=== PATIENT | female | born 1975 | race Caucasian/White ===

== ENCOUNTER 2018-09-09 06:48 | Day surgery (SDC) | payer OTHER, SELFPAY ==
[2018-09-07 15:16] VITALS: BMI 32.9
[2018-09-09] VITALS (11 sets, daily range): BP systolic 112–166; BP diastolic 66–109; PULSE 66–81; RESP 12–19; TEMP 36.2–36.6; O2SAT 92–100; BMI 32.9
--- NOTE | 2018-09-09 | PATH_ITS ---
[facility] Accession Number: [id number] . 01 Material submitted: . R FALLOPIAN TUBE; PORTION L FALLOPIAN TUBE . 02 Diagnosis: Right Fallopian Tube and Portion of Left Fallopian Tube, Right Salpingectomy and Left Partial Salpingectomy: Fimbriated fallopian tube x1 and segment of fallopian tube x1 with no significant histomorphologic abnormality. MRV/09/12/2018 . 02 Electronically signed: . Judy Fenton MD, Pathologist NPI- [id number] . 01 Gross description: . Received in formalin, labeled right fallopian tube + portion left fallopian tube, is a fimbriated fallopian tube (length-4.8 cm, diameter-0.5 cm) and a non-fimbriated segment of fallopian tube (length-2.2 cm, diameter-0.9 cm). The serosa is lópez-huffman, smooth, and shiny. The lumens are lópez and unremarkable. Section code: (A1) fimbriated fallopian tube, medical detail representative serial sections; (A2) fimbria, bivalved, entirely submitted; (A3) non-fimbriated segment, medical detail representative serial sections. ([id number]) /FRR . 02 Pathologist provided ICD-10: Z30.2 . 02 CPT . [id number] Performed at: 01 [facility] [address] [facility], [place], [place] [id number] MD Kobi Pena MD Phone: [phone] Performed at: 02 [facility] [address] [place], [place] [id number] MD Lakshmi Pollock MD Phone: [phone]
--- NOTE | 2018-09-09 07:46 | PM.PREOP ---
Pre-operative Note Interval Note History & Physical reviewed/Exam performed by Physician: Yes Changes to H&P: No
--- NOTE | 2018-09-09 07:46 | PM.HP.1 ---
History of Present Illness Date Patient Seen: 09/09/18 Time Patient Seen: 07:47 Chief complaint: [id number] Narrative: Patient is a 42-year-old with pelvic pain She has Essure in place. Patient History Medical History Ectopic (Resolved) History of urinary reflux (Resolved) Surgical History History of gynecologic surgery (Resolved) History of third molar tooth extraction (Resolved) History of tonsillectomy (Resolved 1997) Status post laparoscopy (Resolved ~1990) Status post urinary system surgery (Resolved ~1979) Social History household members: spouse Smoking Status: Former smoker Family & Social History Social History: household members spouse Tobacco & Substance use: Smoking Status Former smoker Meds Home Medications Medication Instructions Recorded Confirmed Type ibuprofen 600 mg tablet 600 mg PO QID PRN 04/12/18 09/09/18 History Allergies Allergy/AdvReac Type Severity Reaction Status Date / Time Sulfa (Sulfonamide Allergy Intermediate HIVES Verified 04/12/18 14:53 Antibiotics) latex AdvReac Mild itching/red Verified 09/09/18 07:15 ness Exam Vital Signs (past 8 hours): - 09/09/18 07:16 Temperature 97.5 F L Pulse Rate 81 Respiratory Rate 16 Blood Pressure 166/109 H Pulse Oximetry 100 Oxygen Delivery Method Room Air Narrative Exam Narrative: HEENT: No thyromegaly, no anterior cervical or supraclavicular lymphadenopathy. Lungs:Clear to auscultation bilaterally, no wheezes. Cardiovascular: Regular rate and rhythm, no murmurs, rubs, or gallops. Abdomen: Well-healed laparoscopy scars. No hepatosplenomegaly. No masses palpable. External genitalia: Normal Vagina: Normal Cervix: Normal, parous Bimanual exam: 7Week size uterus. Mobile. no adnexal masses or tenderness. Rectal: No masses. Assessment & Plan (1) Pelvic pain in female: Current visit: Yes Status: Acute Assessment & Plan narrative: Assessment: 42-year-old female with pelvic pain, Essure in place Plan: Laparoscopic bilateral salpingectomy with removal of Essure. Possible hysteroscopic removal of Essure. The risks, benefits, and alternatives to the procedure were explained to the patient. The risks including bleeding, infection, injury to the bowel , bladder, or uterus. She understands these risks and agrees to proceed. A full PAR-Q was held and consent form was signed. Time Spent With Patient Time with patient: 15-24 minutes
[2018-09-09] MEDS: LACTATED RINGERS 1,000 ML 100 ML IV ×2 (07:47→09:11)
[2018-09-09] MEDS: CEFAZOLIN 2 GM/100 ML FROZ.PIGGY IV (07:47)
--- NOTE | 2018-09-09 08:11 | SUR.OPER ---
Lithotomy on padded OR bed, head on pillow, arms secured on padded arm boards at <90 degrees abduction. Legs secured in padded yellow fins stirrups.
[2018-09-09] MEDS: BUPIVACAINE 0.5% W/ EPI (PF) VIAL 30 ML INJ (08:36)
[2018-09-09] MEDS: fentaNYL 100 MCG/2 ML INJ 50 MCG IV ×2 (09:40→09:55)
[2018-09-09] MEDS: OXYCODONE/ACETAMINOPHEN 5/325 TABLET 1 TAB PO (10:13)
--- NOTE | 2018-09-09 11:16 | SUR.PHASEII ---
1100 pt resting, vss, dressings dci, pain 3/10, taking fluids , spouse at side
--- NOTE | 2018-09-09 13:58 | SUR.PHASEII ---
1200 pt dressed , dressings dci, no nausea, pain 2/10 , voided, no questions , scant blood noted on bg pad , ready to go home
--- NOTE | 2018-09-30 05:38 | PM.GYNOP.1 ---
Operative Date/Time/Diagnoses Date of procedure: 09/09/18 Time of procedure: 09:00 Pre-op diagnosis: Pelvic pain Essure in place Post-op diagnosis: same Procedure: Procedures Operation Date: 09/09/18 07:45 Actual Procedures Side Surgeon p Laparoscopic RIGHT Salpingectomy, PARTIAL LEFT Bilateral Avis Beck MD s Hysteroscopy w/ removal essure Avis Beck MD Indications: Pelvic pain Essure in place Surgeon: Avis Beck Anesthesia Type: General Operative Notes Findings: Normal uterus Essure visible just through the serosa of the uterus Closure Type: primary Specimen(s): left tube and right tube Estimated blood loss (mL): 5 Blood products transfused: none Procedure in detail: After informed consent was obtained, the patient was taken to the operating room where she was placed in the dorsal supine position. After adequate general endotracheal anesthesia was achieved, she was placed in the dorsal lithotomy position, and prepped and draped in the usual sterile fashion. A time-out was performed. A bivalve speculum was placed into the vagina and the anterior lip of the cervix grasped with a single-tooth tenaculum. The cervical os was sequentially dilated until the Zumi uterine manipulator could pass easily into the endometrial cavity. The single-tooth tenaculum was removed from the anterior lip of the cervix. The bivalve speculum was removed from the vagina. Attention was then turned to the abdomen where 6 cc of 0.5% Marcaine with epinephrine were injected in the umbilical fold. A 5 mm incision was made. The Veress needle was placed into the peritoneal cavity, and its placement confirmed by aspiration and drop test. The abdominal cavity was insufflated with 3.4 L of CO2. The Veress needle was removed and a 5 mm trocars placed without difficulty. Initial inspection of the pelvis and abdomen revealed a normal liver and gallbladder. Appendix was not visualized. There were adhesions between the omentum and the anterior abdominal wall. The Essure were coming up to the serosa of the uterus at the interstitial portion bilaterally. A decision was made to proceed hysteroscopically. The camera was removed from the abdomen. Attention was then turned to the vagina where the Zumi uterine manipulator was removed from the uterus. The cervical os was dilated to the # 9 Hegar dilator. The hysteroscope passed easily into the endometrial cavity. The ends of the Essure were visible coming from the fallopian tube ostia. Using a grasper through the operative hysteroscope, the right Essure was grasped and removed without difficulty all in 1 piece. On the left side the Essure was grasped and gently twisted and came out in 2 pieces. The uterus was examined to make sure that there were no additional pieces of the Essure remaining in the uterus. The hysteroscope was removed from the uterus. The Zumi uterine manipulator was replaced. Gloves were changed and attention was then turned to the abdomen. 2 other 5 mm incisions were made 4 cm lateral to the midline, midway between the pubic symphysis and umbilicus. Two 5 mm trocars were placed without difficulty. The right tube was grasped with an atraumatic grasper. Using the PlasmaKinetic with settings of 40 w the mesosalpinx was cauterized and cut all the way down to the cornua of the uterus and across the tube. The tube was removed through the lateral trocar. This was repeated on the patient's left side. The tube was removed through the lateral trocar. Hemostasis was achieved. The instruments were removed from the abdomen. The CO2 was allowed to escape. The trocars were removed. The incisions were repaired with 4 0 undyed Vicryl in a subcuticular fashion. Steri-Strips, 2 x 2, and op site were placed. The Zumi uterine manipulator was removed from the uterus. Sponge, lap, and instrument counts were correct x2. The patient tolerated the procedure well, and was taken to PACU in stable condition. Complications: none Post-operative Condition: stable Disposition: PACU Plan for aftercare: Home after recovery
== END 2018-09-09 12:10 | disposition home or self-care (01) ==
PROVIDERS: Family Provider Nurse Practitioner Family; PCP Nurse Practitioner Family; Visit Provider Obstetrics & Gynecology
PROC: 0UT74ZZ Resection of Bilateral Fallopian Tubes, Percutaneous Endoscopic Approach (ICD-10-PCS; CPT 58661; principal; 2018-09-09 07:45)
PROC: 0UDB8ZZ Extraction of Endometrium, Via Natural or Artificial Opening Endoscopic (ICD-10-PCS; CPT 58558; 2018-09-09 07:45)
DX: R10.2 Pelvic and perineal pain (principal); Z30.432 Encounter for removal of intrauterine contraceptive device; T83.89XA Other specified complication of genitourinary prosthetic devices, implants and grafts, initial encounter; Z87.891 Personal history of nicotine dependence
CPT/HCPCS: 58661; 58562; 58662; 87077; 87086; 87186; J0360; J0690; J1100; J2250; J2405; J2704; J3010